=== PATIENT | female | born 1995 | race Caucasian/White ===

== ENCOUNTER 2017-05-21 12:16 | Emergency (ER) | payer MEDICARE ==
[~2017-05-21] VITALS: Ht 162.6 cm; Wt 61.7 kg
[2017-05-21 12:25] VITALS: BP 118/76; PULSE 93; RESP 18; TEMP 96.4; O2SAT 100
[2017-05-21 13:52] VITALS: BP 118/76; PULSE 93; RESP 18; TEMP 96.4; O2SAT 100
== END 2017-05-21 13:52 ==
LOC: SED 12:17
DX: I49.9 Cardiac arrhythmia, unspecified (principal)
CPT/HCPCS: 93005; 99283